=== PATIENT | male | born 1950 | race Caucasian/White ===

== ENCOUNTER → 2017-05-30 09:07 | Outpatient (CLI) | payer MEDICARE | END | disposition home or self-care (01) | LOC: D.CT 09:07 | DX: R41.3 Other amnesia (principal) ==

== ENCOUNTER → 2018-05-07 09:43 | Outpatient (CLI) | payer MEDICARE, OTHER | END | disposition home or self-care (01) | LOC: D.CT 05-01 11:00 | DX: G40.209 Localization-related (focal) (partial) symptomatic epilepsy and epileptic syndromes with complex partial seizures, not intractable, without status epilepticus (principal) ==

== ENCOUNTER 2018-12-24 15:32 | Inpatient (IN) | payer MEDICARE, OTHER ==
[~2018-12-24] VITALS: Ht 175.3 cm; Wt 104.3 kg
[2018-12-24] MEDS ORDERED: BETAPACE 80 MG80 MG PO (15:41)
[2018-12-24] MEDS ORDERED: PRISTIQ100 MG PO (15:41)
[2018-12-24] MEDS ORDERED: CORTISONE ACETA25 MG PO (15:42)
[2018-12-24] MEDS ORDERED: LEVOXYL100 MCG PO (15:42)
[2018-12-24] MEDS ORDERED: HCTZ25 MG PO (15:42)
[2018-12-24 16:11] VITALS: BP 135/79
[2018-12-24 16:40] LABS: ALBUMIN 4.1 g/dL (3.4-5.0); BILIRUBIN - TOTAL 0.35 mg/dL (0.2-1.3); CALCIUM 8.6 mg/dL (8.5-10.1); CARBON DIOXIDE 29.1 mmol/L (21.0-32.0); CREATININE - SERUM 1.3 mg/dL (0.6-1.3); POTASSIUM - SERUM 3.5 mmol/L (3.5-5.1); PROTEIN - SERUM 7.7 g/dL (6.4-8.2)
[2018-12-24 16:41] LABS: ANION GAP 10.4 mmol/L (8-16)
[2018-12-24 16:47] LABS: BASOPHILS 0.4 % (0-2); EOSINOPHILS 3.6 % (0-7); HEMATOCRIT 42.9 % (42.0-54.0); HEMOGLOBIN 15.9 g/dL (13.5-17.5); IMMATURE GRANULOCYTES 0.7 % (0-5); LYMPHOCYTES 10.8 % (15-50); MCH 34.8 pg (26.0-34.0); MCHC 37.1 g/dL (31.0-37.0); MCV 93.9 fL (80.0-100.0); MONOCYTES 7.4 % (2-11); NEUTROPHILS 77.1 % (40-80); PLATELET COUNT 215 10x3/uL (130-400); RBC 4.57 10x6/uL (4.20-6.10); RDW 14.6 % (11.5-14.5); WBC 16.7 10x3/uL (4.8-10.8)
--- NOTE | 2018-12-24 16:55 | NUR ---
URINE TO LAB
[2018-12-24 17:22] LABS: APPEARANCE CLEAR (CLEAR); BILIRUBIN NEGATIVE (NEGATIVE); COLOR YELLOW (YELLOW); GLUCOSE 50 mg/dL (NEGATIVE); KETONE NEGATIVE (NEGATIVE); NITRITE NEGATIVE (NEGATIVE); PROTEIN NEGATIVE (NEGATIVE); UROBILINOGEN NORMAL (NORMAL)
--- NOTE | 2018-12-24 21:05 | NUR ---
PT ARRIVED TO M3 WITH HOSPITAL STAFF AND FAMILY MEMBER, PT ALLERTED AND ORIENTED X 3.
--- NOTE | 2018-12-24 21:15 | NUR ---
PT ARRIVED TO FLOOR AOX4, AMBULATED TO BED WITHOUT DIFFICULTY. ASSESSMENT COMPLETED. PLACED SCDS ON PT AND PROVIDED EDUCATION, VERBALIZED UNDERSTANDING. PLACED PUG MILL OPERATOR HELPER ON PT, PACEMAKER TO LEFT CHEST. AT BEDSIDE. QHS CPAP AT BEDSIDE. DENIES NEEDS. CL IN REACH, WILL CTM
--- NOTE | 2018-12-24 21:26 | NUR ---
PT REQUESTED AMBIAN FOR SLEEP TONIGHT. PAGED FLORENCE MORALES FOR AMBIAN AND FLORENCE ORDERED AMBIAN 5MG QHS FOR PT.
[2018-12-24 21:31] VITALS: BP 163/87; BMI 34.0
[2018-12-24 23:34] VITALS: BP 158/86
--- NOTE | 2018-12-25 01:30 | NUR ---
PT CALLED TO GET UP TO BATHROOM. REMOVED SCDS SO PT COULD GET UP. PT AMBULATED TO BATHROOM WITHOUT DIFFICULTY AND VOIDED. PLACED SCDS BACK ON PT ONCE IN BED. DENIES NEEDS AT THIS TIME. CPAP ON. CL IN REACH, WILL CTM
[2018-12-25 04:45] VITALS: BP 137/81
[2018-12-25 06:17] LABS: ANION GAP 14.8 mmol/L (8-16); CALCIUM 8.2 mg/dL (8.5-10.1); CARBON DIOXIDE 24.6 mmol/L (21.0-32.0); CREATININE - SERUM 1.1 mg/dL (0.6-1.3); MAGNESIUM - SERUM 1.5 mg/dL (1.8-2.4); PHOSPHOROUS 2.2 mg/dL (2.5-4.9); POTASSIUM - SERUM 3.4 mmol/L (3.5-5.1); THYROID STIMULATING HORMONE 0.56 uIU/mL (0.36-3.74)
--- NOTE | 2018-12-25 07:10 | NUR ---
REPORT RECEIVED FROM PARCEL POST ORDER CLERK AND PATIENT CARE ASSUMED. PATIENT LAYING IN BED WITH EYES CLOSED AND BREATHING EVENLY. PATIENT IS STABLE AND VSS. WILL CONTINUE WITH PLAN OF CARE. SR UP X 2 BED IN LOW POSITION AND CALL LIGHT IN REACH.
[2018-12-25 08:00] VITALS: BP 140/82
--- NOTE | 2018-12-25 08:21 | NUR ---
COMPLETED PATIENT ASSESSMENT. PATIENT ANSWER ORIENTATION QUESTIONS SLOWLY. ORIENTED TO PERSON , PLACE , SITUATION BUT ANSWERED 2015 TO . PATIENT DENIES ANY NEEDS OR PAIN. WILL CONTINUE TO MONITOR. SR UP X 2 BED IN LOW POSITION AND CALL LIGHT IN REACH.
[2018-12-25 08:30] LABS: BASOPHILS 0.5 % (0-2); EOSINOPHILS 3.5 % (0-7); HEMATOCRIT 39.2 % (42.0-54.0); HEMOGLOBIN 14.4 g/dL (13.5-17.5); IMMATURE GRANULOCYTES 0.6 % (0-5); MCHC 36.7 g/dL (31.0-37.0); MCV 92.5 fL (80.0-100.0); MEAN PLATELET VOLUME 10.8 fL (7.4-10.4); NEUTROPHILS 76.4 % (40-80); PLATELET COUNT 207 10x3/uL (130-400); RBC 4.24 10x6/uL (4.20-6.10); RDW 14.5 % (11.5-14.5); WBC 17.6 10x3/uL (4.8-10.8)
--- NOTE | 2018-12-25 10:20 | NUR ---
PATIENT TO BR THEN IN BS CHAIR. PATIENT IS STABLE AND VSS. PATIENT DENIES ANY NEEDS OR PAIN. CALL LIGHT IN REACH. WILL CONTINUE TO MONITOR.
[2018-12-25 10:36] VITALS: BMI 33.9
[2018-12-25 11:30] VITALS: BP 132/72
--- NOTE | 2018-12-25 13:00 | NUR ---
PATIENT BACK TO BED. SCD'S APPLIED. PATIENT IS STABLE AND UNCHANGED. WILL CONTINUE TO MONITOR. SR UP X 2 BED IN LOW POSITION AND CALL LIGHT IN REACH.
[2018-12-25 14:40] LABS: CALCIUM 7.4 mg/dL (8.5-10.1); CARBON DIOXIDE 25.6 mmol/L (21.0-32.0); CREATININE - SERUM 1.3 mg/dL (0.6-1.3)
[2018-12-25 14:41] LABS: ANION GAP 12.3 mmol/L (8-16)
[2018-12-25 14:44] LABS: POTASSIUM - SERUM 2.9 mmol/L (3.5-5.1)
[2018-12-25 16:00] VITALS: BP 139/71
--- NOTE | 2018-12-25 16:30 | NUR ---
PATIENT AMBULATING IN HW WITH AT SIDE. PATIENT HAS STEADY GAIT AND TOLERATING WELL.
--- NOTE | 2018-12-25 17:03 | NUR ---
PATIENT SITTING IN CHAIR EATING SUPPER. PATIENT DENIES ANY NEEDS OR PAIN. AT .
--- NOTE | 2018-12-25 17:12 | MORECARE ---
CASE MANAGEMENT DISCHARGE SUMMARY PATIENT: MISTY DENG UNIT: [id number] ADM DATE: 12/24/18 AGE: 68 : 49 SEX: M ROOM/BED: D.1207 AUTHOR: SHERIN PARSONS PHYSICIAN: REFERRING PHYSICIAN: MISTY SHER MD DATE OF SERVICE: 12/25/18 Discharge Plan Patient Name: MISTY DENG Facility: [facility]:[place] : 1950 Planned Disposition: Anticipated Discharge Date: Discharge Date: Expected LOS: Initial Reviewer: [email or web address] Initial Review Date: 12/25/2018 Generated: 12/25/18 6:12 pm Comments DCP- Discharge Planning Updated by [email or web address]: Maggie Shirley on 12/25/18 4:[address] Patient Name: MISTY DENG Admission Status: ER Accout number: [id number] Admission Date: 12-24-2018 : 1950 Admission Diagnosis: Attending: MISTY SHER Current LOS: 1 Anticipated DC Date: Planned Disposition: Primary Insurance: MEDICARE A & B Discharge Planning Comments: CM MET WITH PATIENT AND HIS TO DISCUSS DC PLANNING/NEEDS. STATES PLANS TO DC TO HOME WITH AND DENIES NEEDS. CM TO FOLLOW AND ASSIST. Truer Pinion And Wheel: Maggie Shirley DCPIA - Discharge Planning Initial Assessment Updated by [email or web address]: Maggie Shilrey on 12/25/18 5:06 pm * PCP YUNIEL * Pharmacy [facility] * Preadmission Environment Home with Family * ADLs Independent * Equipment CPAP * List name and contact numbers for known caregivers / representatives who currently or will assist patient after discharge: PRATH, * Community resources currently utilized None * Additional services required to return to the preadmission environment? No * Can the patient safely return to the preadmission environment? Yes * Has this patient been hospitalized within the prior 30 days at any hospital? Yes Patient Name: MISTY DENG Page [id number] at 3272 All edits/amendments must be made on the electronic document DICTATION DATE: 12/25/181711 PALLIATIVE CARE NURSE: DONNELL 12/25/181711 RPT#: [id number] [place] DATE: STATUS: ADM IN [facility] [address] [place] [address] END OF REPORT
[2018-12-25] MEDS ORDERED: NORVASC5 MG PO (18:47)
[2018-12-25] MEDS ORDERED: ASPIRIN325 MG PO (18:47)
[2018-12-25] MEDS ORDERED: KLONOPIN0.5 MG PO (18:48)
[2018-12-25] MEDS ORDERED: PLAVIX75 MG PO (18:48)
[2018-12-25] MEDS ORDERED: VIBRAMYCIN 100100 MG PO (19:08)
[2018-12-25] MEDS ORDERED: CORTEF10 MG PO (19:09)
[2018-12-25] MEDS ORDERED: MUCINEX DM ER1 EAC1 PO (19:09)
[2018-12-25] MEDS ORDERED: REXULTI1 MG PO (19:10)
[2018-12-25] MEDS ORDERED: PROTONIX40 MG PO (19:10)
[2018-12-25] MEDS ORDERED: CRESTOR20 MG PO (19:11)
[2018-12-25] MEDS ORDERED: THERMOTABS 1 GM1 GM PO (19:12)
[2018-12-25] MEDS ORDERED: SYMBICORT 16010.2 GM INH (19:12)
--- NOTE | 2018-12-25 19:20 | NUR ---
EVENING ROUNDS MADE, WILL CONTINUE POC. PATIENT IS A/O, WITH CONFUSION AT TIMES, UP AD BOZENA. NO S/SX OF DISTRESS NOTED. RR EVEN AND UNLABORED ON ROOM AIR, PATIENT WEARS BIPAP AT NIGHT. PATIENT ACCIDENTIAL PULLED OUT IV TO RT UPPER ARM, CATH TIP INTACT. WILL RESITE IV. PATIENT DENIES FURTHER NEEDS AT THIS TIME. IS AT BEDSIDE. CL IN REACH, BED LOCKED AND LOWERED. WILL CTM.
[2018-12-25 20:00] VITALS: BP 143/80
--- NOTE | 2018-12-25 20:50 | NUR ---
RESITED IV TO RT UPPER ARM. NS INFUSING @75ML/HR, JUST HUNG ROCEPHIN PER ORDERS. IV IS PATENT, DRSG IS C/D/I. PATIENT TOLERATED WELL. PATIENT DENIES FURTHER NEEDS AT THIS TIME. WILL CTM.
--- NOTE | 2018-12-25 22:51 | NUR ---
PATIENT C/O BLOATING/GAS. OFFERED MIRALAX WITH PRUNE JUICE. PATIENT REPORT SOME RELIEF ALREADY. WILL CTM.
[2018-12-26 00:28] VITALS: BP 152/95
--- NOTE | 2018-12-26 03:35 | NUR ---
PATIENT WOKE UP TO USE THE BATHROOM AND WAS DISORIENTED. HE PULLED OUT IV, CATH TIP INTACT, AND PULLED OFF TELE. CURRENTLY REORIENTED TO TIME AND SITUATION. TELE REATTACHED. NOT ABLE TO RESITE IV DUE TO VEIN FINDER BEING USED ON ANOTHER FLOOR. WILL BE NOTIFIED WHEN IT'S RETURNED TO LAB. CL IN REACH, BED LOCKED AND LOWERED. WILL CTM.
[2018-12-26 04:12] VITALS: BP 138/76
--- NOTE | 2018-12-26 05:33 | NUR ---
I have reviewed this patient and I concur with the Shift Assessment completed by the Licensed Practical Nurse today this shift.
[2018-12-26 06:45] LABS: BASOPHILS 0.4 % (0-2); EOSINOPHILS 3.5 % (0-7); HEMOGLOBIN 14.5 g/dL (13.5-17.5); IMMATURE GRANULOCYTES 0.7 % (0-5); LYMPHOCYTES 18.1 % (15-50); MCH 33.8 pg (26.0-34.0); MCHC 37.2 g/dL (31.0-37.0); MCV 90.9 fL (80.0-100.0); MEAN PLATELET VOLUME 10.8 fL (7.4-10.4); MONOCYTES 8.2 % (2-11); NEUTROPHILS 69.1 % (40-80); PLATELET COUNT 210 10x3/uL (130-400); RBC 4.29 10x6/uL (4.20-6.10); RDW 14.3 % (11.5-14.5); WBC 17.8 10x3/uL (4.8-10.8)
--- NOTE | 2018-12-26 06:50 | NUR ---
REPORT RECEIVED AND PATIENT CARE ASSUMED. PATIENT LAYING IN BED AWAKE, ALERT AND DISORIENTED TO TIME. PATIENT IS STABLE AND VSS. PATIENT DENIES ANY NEEDS OR PAIN. WILL CONTINUE WITH PLAN OF CARE. SR UP X 2 BED IN LOW POSITION AND CALL LIGHT IN REACH.
[2018-12-26 07:05] LABS: CARBON DIOXIDE 26.9 mmol/L (21.0-32.0); CREATININE - SERUM 1.1 mg/dL (0.6-1.3); MAGNESIUM - SERUM 1.7 mg/dL (1.8-2.4); PHOSPHOROUS 2.3 mg/dL (2.5-4.9)
[2018-12-26 07:12] LABS: ANION GAP 13.6 mmol/L (8-16); POTASSIUM - SERUM 3.5 mmol/L (3.5-5.1)
--- NOTE | 2018-12-26 09:30 | NUR ---
PATIENT UP TO BATHROOM FOR SHOWER AND COMPLETE LINEN CHANGE. PATIENT IS UNCHANGED AND STABLE. WILL CONTINUE WITH PLAN OF CARE. SR UP X 2 BED IN LOW POSITION AND CALL LIGHT IN REACH.
--- NOTE | 2018-12-26 11:30 | NUR ---
PATIENT IS UNCHANGED. PATIENT PULLED IV OUT. MARIO PINTOSUPERVISOR LUMP ROOM ACCESS IN ROOM. NEW PIV ACCESS TO RT FOREARM. PATIENT DENIES ANY NEEDS OR PAIN. SR UP X 2 BED IN LOW POSITION AND CALL LIGHT IN ROBERT.
[2018-12-26 14:29] LABS: CARBON DIOXIDE 27.3 mmol/L (21.0-32.0); GLUCOSE 135 mg/dL (74-106); MAGNESIUM - SERUM 1.8 mg/dL (1.8-2.4); POTASSIUM - SERUM 3.6 mmol/L (3.5-5.1); UREA NITROGEN 8 mg/dL (7-18); eGFR NON AFRICAN AMERICAN 79 mL/min (90-120)
[2018-12-26 14:30] LABS: CALC OSMOLALITY 236 mosm/kg (275-300)
[2018-12-26 14:31] LABS: CHLORIDE - SERUM 80 mmol/L (98-107); SODIUM 117 mmol/L (136-145)
--- NOTE | 2018-12-26 15:45 | NUR ---
DR ORELLANA IN ROOM. NEW ORDERS RECEIVED.
--- NOTE | 2018-12-26 16:40 | NUR ---
BLADDER SCAN COMPLETED SHOWING 94 ML OF URINE. AGAIN EXPLAINED THAT URINE SPECIMEN NEEDED AND URINAL PROVIDED. PATIENT AND VERBALIZED UNDERSTANDING.
--- NOTE | 2018-12-26 18:23 | NUR ---
PATIENT SITTING UP IN BED WATCHING TV WITH AT BS. PATIENT IS STABLE AND VSS. WILL CONTINUE TO MONITOR. SR UP X 2 BED IN LOW POSITION AND CALL LIGHT IN REACH.
[2018-12-26 19:40] LABS: CALCIUM 7.7 mg/dL (8.5-10.1); CARBON DIOXIDE 22.7 mmol/L (21.0-32.0); CREATININE - SERUM 0.8 mg/dL (0.6-1.3); GLUCOSE 101 mg/dL (74-106); UREA NITROGEN 9 mg/dL (7-18); eGFR NON AFRICAN AMERICAN > 90 mL/min (90-120)
[2018-12-26 19:42] LABS: CALC OSMOLALITY 231 mosm/kg (275-300); POTASSIUM - SERUM 4.3 mmol/L (3.5-5.1)
[2018-12-26 19:44] LABS: CHLORIDE - SERUM 80 mmol/L (98-107); SODIUM 115 mmol/L (136-145)
--- NOTE | 2018-12-26 19:45 | NUR ---
RECEIVED CRITICAL RESULTS FROM LAB Na 115, Cl 80
--- NOTE | 2018-12-26 19:46 | NUR ---
EVENING ROUNDS MADE, WILL CONTINUE POC. PATIENT IS ALERT AND ORIENTED AT THE MOMENT, CONFUSED AT TIMES. IS AT BEDSIDE. PATIENT HAS IV TO RT FA WITH FLUIDS INFUSING @ 30ML/HR. NO S/S OF DISTRESS NOTED. RR EVEN AND UNLABORED ON ROOM AIR. PATIENT DENIES FURHTER NEEDS AT THIS TIME. CL IN REACH, BED LOCKED AND LOWERED. WILL CTM.
[2018-12-26 20:00] VITALS: BP 159/57
--- NOTE | 2018-12-27 00:31 | NUR ---
I have reviewed this patient and I concur with the Shift Assessment completed by the Licensed Practical Nurse today this shift.
[2018-12-27 00:46] VITALS: BP 159/89
--- NOTE | 2018-12-27 00:51 | NUR ---
PATIENT C/O OF TIGHTNESS AND PAIN IN HIS ABDOMEN AND NOT BEING ABLE TO FULLY EMPTY HIS BLADDER. BLADDER SCAN SHOWED 10ML. CALLED FLORENCE, ORDERS PUT IN FOR PAIN MEDS. PATIENT HAS BEEN ABLE TO PASS ALOT OF GAS AND URINATED MORE. PATIENT REPORTS MUCH RELIEF AND DENIES FURTHER NEEDS AT THIS TIME. CL IN REACH, BED LOCKED AND LOWERED. WILL CTM.
[2018-12-27 01:16] LABS: CREATININE - URINE 37.3 mg/dL (30-125)
[2018-12-27 06:57] LABS: BASOPHILS 0.3 % (0-2); EOSINOPHILS 2.5 % (0-7); HEMATOCRIT 38.2 % (42.0-54.0); HEMOGLOBIN 14.2 g/dL (13.5-17.5); IMMATURE GRANULOCYTES 0.6 % (0-5); LYMPHOCYTES 14.9 % (15-50); MCH 33.7 pg (26.0-34.0); MCHC 37.2 g/dL (31.0-37.0); MCV 90.7 fL (80.0-100.0); MEAN PLATELET VOLUME 10.9 fL (7.4-10.4); MONOCYTES 9.7 % (2-11); PLATELET COUNT 205 10x3/uL (130-400); RBC 4.21 10x6/uL (4.20-6.10); RDW 14.3 % (11.5-14.5); WBC 18.6 10x3/uL (4.8-10.8)
[2018-12-27 07:17] LABS: CALCIUM 7.5 mg/dL (8.5-10.1); CARBON DIOXIDE 25.1 mmol/L (21.0-32.0); CHLORIDE - SERUM 88 mmol/L (98-107); GLUCOSE 106 mg/dL (74-106); MAGNESIUM - SERUM 1.6 mg/dL (1.8-2.4); SODIUM 123 mmol/L (136-145); eGFR NON AFRICAN AMERICAN 79 mL/min (90-120)
[2018-12-27 07:22] LABS: CALC OSMOLALITY 245 mosm/kg (275-300); PHOSPHOROUS 1.4 mg/dL (2.5-4.9); POTASSIUM - SERUM 3.5 mmol/L (3.5-5.1); UREA NITROGEN 6 mg/dL (7-18)
--- NOTE | 2018-12-27 07:38 | NUR ---
PT SITTING UP RIGHT IN BED EATING BREAKFAST. FAMILY AT BEDSIDE. PT HAS A 22 GAUGE IV TO THE RIGHT FOREARM, SALINE LOCKED. PT WEARS A BIPAP AT NIGHT. PT IS ALERT WITH OCCASSIONAL CONFUSION. LEFT CHEST PACEMAKER, PLACED IN THE 80'.S DENIES ANY NEEDS. WILL CTM.
--- NOTE | 2018-12-27 08:20 | NUR ---
ADMINISTERED MEDICATION AT THIS TIME, NO TROUBLE SWALLOWING. PT DENIES ANY NEEDS AT THIS TIME. FAMILY AT BEDSIDE. WILL CTM.
--- NOTE | 2018-12-27 10:45 | NUR ---
RESTING COMFORTABLY IN BED WITH FAMILY AT BEDSIDE. DENIES ANY NEEDS. WILL CTM.
[2018-12-27 10:57] VITALS: Ht 175.3 cm; Wt 104.3 kg
--- NOTE | 2018-12-27 11:00 | NUR ---
DC PT RIGHT FOREARM IV DUE TO LEAKING. TOLERATED WELL. CATHETER TIP INTACT. CONTACT SORAIDA JOHNS TO RESTART IV.
--- NOTE | 2018-12-27 13:00 | NUR ---
MED SURG NURSE MARIO MOSQUERA ATTEMPTED TO START PERIPHERAL IV ON PATIENT, ATTEMPT FAILED. PENOLOGY PROFESSOR CONTACTED IN ATTEMPT TO REACH ANESTHESIA TO GET IV ACCESS ON PATIENT. AWAITING CALL BACK. IV ACCESS IS URGENT.
--- NOTE | 2018-12-27 13:24 | NUR ---
PT IS NOW VERY CONFUSED, ROAMING AROUND. CONVINCED PT TO GET BACK IN BED. LEFT RESTING COMFORTABLY WITH 2 SIDE RAILS UP, BED IN LOWEST POSITION AND CALL LIGHT WIHIN REACH. LEFT TEMPORARILY. WILL CTM CLOSELY.
--- NOTE | 2018-12-27 14:14 | NUR ---
HUNG IV SODIUM PHOSPHATE, GAVE PO MAGNESIUM 400 MG AND SODIUM CHLORIDE TAB 1 GRAM. NO TROUBLE SWALLOWING. ANESTHESIA ABLE TO START 24 GAUGE IV TO RIGHT THUMB. WILL CTM.
--- NOTE | 2018-12-27 15:39 | NUR ---
I have reviewed this patient and I concur with the Shift Assessment completed by the Licensed Practical Nurse today this shift.
[2018-12-27 16:26] VITALS: BP 153/74
--- NOTE | 2018-12-27 16:29 | NUR ---
PT RESTING COMFORTABLY IN BEDSIDE CHAIR, AT BEDSIDE. ASSESSED VITALS, ALL ARE STABLE AT THIS TIME. DENIES ANY NEEDS AT THIS TIME. WILL CTM.
--- NOTE | 2018-12-27 17:40 | NUR ---
PT RESTING COMFORTABLY IN BEDSIDE CHAIR WITH AT BEDSIDE. DENIES ANY NEEDS AT THIS TIME. WILL CTM.
--- NOTE | 2018-12-27 18:22 | NUR ---
ADMINISTERED FINAL DOSE OF MAGNESIUM 400 MG. HUNG 3% SODIUM CHLORIDE. NO COMPLAINTS. PT RESTING COMFORTABLY IN BED, AT BEDSIDE. DENIES ANY NEEDS. WILL CTM.
[2018-12-27 18:57] LABS: CALCIUM 7.5 mg/dL (8.5-10.1); CARBON DIOXIDE 28.8 mmol/L (21.0-32.0); GLUCOSE 100 mg/dL (74-106); MAGNESIUM - SERUM 1.8 mg/dL (1.8-2.4); UREA NITROGEN 7 mg/dL (7-18); eGFR NON AFRICAN AMERICAN 79 mL/min (90-120)
[2018-12-27 19:09] LABS: PHOSPHOROUS 2.6 mg/dL (2.5-4.9)
[2018-12-27 19:10] LABS: CALC OSMOLALITY 239 mosm/kg (275-300); CHLORIDE - SERUM 85 mmol/L (98-107); POTASSIUM - SERUM 4.1 mmol/L (3.5-5.1); SODIUM 120 mmol/L (136-145)
--- NOTE | 2018-12-27 19:45 | NUR ---
A&O X 4, AMULATORY IN ROOM, INDEPENDENTLY. AT BEDSIDE. PT HAS GENERALIZED EDEMA, VITAL SIGNS ARE STABLE, BREATHING PATTERN IS SHALLOW AND LUNG SOUNDS ARE DIMINISHED, BUT PRESENT. ENCOURAGED PT TO COUGH AND DEEP BREATHE. ABDOMENAL DISTENTION PRESENT. PT REPORTS REGULAR BMs DAILY/EOD. DENIES N/V PAIN/DISCOMFORT. BRUISING TO BILATERAL UPPER EXTREMITIES. PT CURRENT REFUSES SCDs AND TOBACCO SPRAYER. 24G IV TO RIGHT THUMB FLUSHES WITH EASE. PT AND DO NOT WANT HIM TO TAKE AMBIEN TONIGHT. DENIES FURTHER NEEDS, WILL CONTINUE TO MONITOR.
[2018-12-27 20:00] VITALS: BP 140/70
--- NOTE | 2018-12-27 22:00 | NUR ---
ENTERED ROOM IN RESPONSE TO CALL LIGHT. PT REPORTS RESTLESSNESS. STATES THE MELATONIN IS AN INADEQUATE SLEEP AID AND REQUESTS HIS AMBIEN TO CALM HIM.
[2018-12-28] VITALS: BP 141/78
--- NOTE | 2018-12-28 00:41 | NUR ---
RIGHT SIDE-LYING IN BED, SPONTANEOUS EYE OPENING TO VERBAL STIMULATION. DENIES PAIN/DISCOMFORT. EXPIRATORY WHEEZES AUDIBLE. VITAL SIGNS STABLE. SPO2 92% AND RISING WITH CONTINUED MONITORING WHILE PT IS AWAKE. ENCOURAGED TO UTILIZE HIS HOME CPAP MACHINE. PT APPLIED AND OPERATED CPAP INDEPENDENTLY, DENIES NEEDS AT THIS TIME, WILL CONTINUE TO MONITOR.
--- NOTE | 2018-12-28 03:21 | NUR ---
I have reviewed this patient and I concur with the Shift Assessment completed by the Licensed Practical Nurse today this shift.
[2018-12-28 04:00] VITALS: BP 150/83
[2018-12-28 06:49] LABS: BASOPHILS 0.5 % (0-2); EOSINOPHILS 3.6 % (0-7); HEMOGLOBIN 14.6 g/dL (13.5-17.5); IMMATURE GRANULOCYTES 0.6 % (0-5); LYMPHOCYTES 16.3 % (15-50); MCHC 37.4 g/dL (31.0-37.0); MCV 90.7 fL (80.0-100.0); MEAN PLATELET VOLUME 10.9 fL (7.4-10.4); MONOCYTES 11.9 % (2-11); NEUTROPHILS 67.1 % (40-80); PLATELET COUNT 220 10x3/uL (130-400); RDW 14.4 % (11.5-14.5); WBC 18.2 10x3/uL (4.8-10.8)
[2018-12-28 07:10] LABS: ANION GAP 14.2 mmol/L (8-16); CALCIUM 7.7 mg/dL (8.5-10.1); CARBON DIOXIDE 22.9 mmol/L (21.0-32.0); CREATININE - SERUM 1.1 mg/dL (0.6-1.3); MAGNESIUM - SERUM 1.9 mg/dL (1.8-2.4); PHOSPHOROUS 1.8 mg/dL (2.5-4.9); POTASSIUM - SERUM 4.1 mmol/L (3.5-5.1)
[2018-12-28 08:10] VITALS: BP 141/79
--- NOTE | 2018-12-28 09:23 | NUR ---
PT ALERT X 3, DISORIENTED TO SITUATION. BREATH SOUNDS CLEAR BILAT. GENERALIZED EDEMA ALL OVER. IV TO RIGHT THUMB, PATENT, DRESSING CDI. AT BEDSIDE. BED LOW, CALL LIGHT IN REACH. NO OTHER NEEDS AT THIS TIME.
[2018-12-28 12:14] VITALS: BP 142/76
[2018-12-28 13:17] LABS: CALC OSMOLALITY 247 mosm/kg (275-300); CALCIUM 7.5 mg/dL (8.5-10.1); CARBON DIOXIDE 22.8 mmol/L (21.0-32.0); CHLORIDE - SERUM 90 mmol/L (98-107); CREATININE - SERUM 0.9 mg/dL (0.6-1.3); GLUCOSE 101 mg/dL (74-106); POTASSIUM - SERUM 4.5 mmol/L (3.5-5.1); SODIUM 124 mmol/L (136-145); UREA NITROGEN 6 mg/dL (7-18); eGFR NON AFRICAN AMERICAN 89 mL/min (90-120)
[2018-12-28 13:19] LABS: PHOSPHOROUS 2.9 mg/dL (2.5-4.9)
[2018-12-28 20:03] VITALS: BP 160/79
--- NOTE | 2018-12-28 20:05 | NUR ---
PATIENT RESTING IN BED WITH GUEST AT BEDSIDE AND NO S/S OF DISTRESS. PATIENT DENIES NEEDS AT THIS TIME. BED IN LOWEST POSITION AND CALL LIGHT WITHIN REACH. ENCOURAGED THE PATIENT TO CALL IF HE HAS NEEDS. WILL CONTINUE TO MONITOR.
[2018-12-28 20:09] LABS: ANION GAP 15.6 mmol/L (8-16); CALCIUM 7.5 mg/dL (8.5-10.1); CARBON DIOXIDE 23.5 mmol/L (21.0-32.0); POTASSIUM - SERUM 4.1 mmol/L (3.5-5.1)
[2018-12-28 20:10] LABS: CREATININE - SERUM 1.2 mg/dL (0.6-1.3)
--- NOTE | 2018-12-28 20:27 | NUR ---
PAGED DR. ORELLANA IN REGARDS TO LAB RESULTS
[2018-12-28 23:49] VITALS: BP 152/49
[2018-12-29 04:32] VITALS: BP 147/76
[2018-12-29 07:18] LABS: BASOPHILS 0.6 % (0-2); EOSINOPHILS 2.8 % (0-7); HEMATOCRIT 36.7 % (42.0-54.0); HEMOGLOBIN 13.4 g/dL (13.5-17.5); IMMATURE GRANULOCYTES 0.5 % (0-5); LYMPHOCYTES 21.5 % (15-50); MCH 33.9 pg (26.0-34.0); MCHC 36.5 g/dL (31.0-37.0); MEAN PLATELET VOLUME 10.7 fL (7.4-10.4); MONOCYTES 10.9 % (2-11); NEUTROPHILS 63.7 % (40-80); PLATELET COUNT 222 10x3/uL (130-400); RBC 3.95 10x6/uL (4.20-6.10); RDW 14.8 % (11.5-14.5); WBC 14.3 10x3/uL (4.8-10.8)
[2018-12-29 07:28] LABS: MCV 92.9 fL (80.0-100.0)
[2018-12-29 07:53] LABS: ANION GAP 11.5 mmol/L (8-16); CALCIUM 7.4 mg/dL (8.5-10.1); CARBON DIOXIDE 29.1 mmol/L (21.0-32.0); CREATININE - SERUM 1.1 mg/dL (0.6-1.3); MAGNESIUM - SERUM 1.9 mg/dL (1.8-2.4); POTASSIUM - SERUM 3.6 mmol/L (3.5-5.1)
[2018-12-29 07:56] LABS: PHOSPHOROUS 1.8 mg/dL (2.5-4.9)
[2018-12-29 08:00] VITALS: BP 123/101
--- NOTE | 2018-12-29 09:18 | NUR ---
Nutrition Follow-up: Diet: regular (extra salt) PO intake: 79% Wt trend stable +BM Labs, meds, and skin assessment reviewed RD Following
--- NOTE | 2018-12-29 10:35 | NUR ---
THE PATIENT WAS LYING IN BED AND TALKING WITH HIS WHEN STAFF ENTERED HIS ROOM. BED IS INT HE LOW PSOITION WITH SIDERAILS X2 AND CALL LIGHT WITHIN REACH. THE PATIENT WAS EDUCATED ON THE USE OF A CALL LIGHT AND DEMONSTRATES UNDERSTANDING VIA TEACHBACK METHOD. THE PATIENT APPEARS COMFORTABLE WITH NO QUESTIONS OR CONCERNS AT THIS TIME.
[2018-12-29 11:00] VITALS: BP 141/83
[2018-12-29 16:00] VITALS: BP 126/96
--- NOTE | 2018-12-29 19:48 | NUR ---
PATIENT RESTING IN CHAIR WITH NO S/S OF DISTRESS. PATIENT DENIES NEEDS AT THIS TIME. BED IN LOWEST POSITION AND CALL LIGHT WITHIN REACH. ENCOURAGED THE PATIENT TO CALL IF SHE HAS NEEDS. WILL CONTINUE TO MONITOR.
[2018-12-29 20:18] VITALS: BP 133/82
[2018-12-30] VITALS: BP 165/67
[2018-12-30 04:00] VITALS: BP 163/79
[2018-12-30 07:11] LABS: BASOPHILS 0.9 % (0-2); HEMATOCRIT 35.7 % (42.0-54.0); HEMOGLOBIN 12.7 g/dL (13.5-17.5); IMMATURE GRANULOCYTES 0.4 % (0-5); MCH 33.6 pg (26.0-34.0); MCHC 35.6 g/dL (31.0-37.0); MCV 94.4 fL (80.0-100.0); MEAN PLATELET VOLUME 10.5 fL (7.4-10.4); MONOCYTES 9.5 % (2-11); NEUTROPHILS 64.2 % (40-80); PLATELET COUNT 223 10x3/uL (130-400); RBC 3.78 10x6/uL (4.20-6.10); RDW 15.1 % (11.5-14.5); WBC 12.9 10x3/uL (4.8-10.8)
[2018-12-30 07:29] LABS: ANION GAP 12.6 mmol/L (8-16); CALCIUM 7.8 mg/dL (8.5-10.1); CARBON DIOXIDE 29.1 mmol/L (21.0-32.0); CREATININE - SERUM 1.2 mg/dL (0.6-1.3); MAGNESIUM - SERUM 1.8 mg/dL (1.8-2.4); PHOSPHOROUS 2.1 mg/dL (2.5-4.9); POTASSIUM - SERUM 3.7 mmol/L (3.5-5.1)
--- NOTE | 2018-12-30 08:02 | NUR ---
REPORT RECIEVED. PT STANDING UP AT BEDSIDE. IN ROOM. RR EVEN AND UNLABORED. DISCUSSED WITH PT ABOUT NO FREE WATER AND FLUID RESTRICTIONS AT 1200ML/DAY. PT HAS A R THUMB PIV THAT IS SL. BED LOCKED AND IN LOWEST POSITION. CALL LIGHT WITHIN REACH. WILL CTM
[2018-12-30 09:39] VITALS: BP 152/72
[2018-12-30] MEDS ORDERED: FUROSEMIDE20 MG PO (09:42)
--- NOTE | 2018-12-30 15:26 | NUR ---
NV PAPERWORK GONE OVER AND SIGNED WITH PT. ALL QUESTIONS ANSWERED. PIV REMOVED, CATH TIP FULLY INTACT. PT TAKEN TO FRONT ENTRANCE VIA WHEELCHAIR. PRESENT AT NV.
--- NOTE | 2018-12-30 15:39 | MORECARE ---
CASE MANAGEMENT DISCHARGE SUMMARY PATIENT: MISTY DENG UNIT: [id number] ADM DATE: 12/24/18 AGE: 68 : [birth year] SEX: M ROOM/BED: D.1207 AUTHOR: SHERIN PARSONS PHYSICIAN: REFERRING PHYSICIAN: MISTY SHER MD DATE OF SERVICE: 12/30/18 Discharge Plan Patient Name: MISTY DENG Facility: [facility]:[place] : 1950 Planned Disposition: Home Anticipated Discharge Date: 12/30/18 Discharge Date: 12/30/2018 Expected LOS: 6 Initial Reviewer: [email or web address] Initial Review Date: 12/25/2018 Generated: 12/30/18 4:38 pm Comments DCP- Discharge Planning Updated by [email or web address]: César Bronson on 12/30/18 2:[address] Patient Name: MISTY DENG Encounter No: [id number] : 1950 Primary Insurance: MEDICARE A & B Anticipated DC Date: 12-30-2018 Planned Disposition: Home DCP follow-up note: CM MET WITH PT IN ROOM TO DISCUSS DISCHARGE NEEDS AND PLANNING. CM DISCUSSED AVAILABILITY OF HOME HEALTH, REHAB SERVICES AND MEDICAL EQUIPMENT. PT DENIES DISCHARGE NEEDS. SPOUSE TO TRANSPORT HOME AT DISCHARGE. IMPORTANT MESSAGE FROM MEDICARE PROVIDED AND EXPLAINED. DAIRY SCIENCE TEACHER NURSE NOTIFIED. EMILIANA Myers DCP- Discharge Planning Updated by [id number]: Maggie Shirley on 12/25/18 4:[address] Patient Name: MISTY DENG Admission Status: ER Accout number: [id number] Admission Date: 12-24-2018 : 1950 Admission Diagnosis: Attending: MISTY SHER Current LOS: 1 Anticipated DC Date: Planned Disposition: Primary Insurance: MEDICARE A & B Discharge Planning Comments: CM MET WITH PATIENT AND HIS TO DISCUSS DC PLANNING/NEEDS. STATES PLANS TO DC TO HOME WITH AND DENIES NEEDS. CM TO FOLLOW AND ASSIST. Nut Grinder: Maggie Shirley DCPIA - Discharge Planning Initial Assessment Updated by [email or web address]: Maggie Shirley on 12/25/18 5:06 pm * PCP YUNIEL * Pharmacy [facility] [address] * Preadmission Environment Home with Family * ADLs Independent * Equipment CPAP * List name and contact numbers for known caregivers / representatives who currently or will assist patient after discharge: PARTH, * Community resources currently utilized None * Additional services required to return to the preadmission environment? No * Can the patient safely return to the preadmission environment? Yes * Has this patient been hospitalized within the prior 30 days at any hospital? Yes Coverage Notice Reviewer: [id number] Trip Bronson Notice Issued Date-Time: 12/30/2018 12:05 Notice Type: IM Discharge Notice Notice Delivered To: Patient Relationship to Patient: Electronic Intelligence Officer Name: Delivery Method: HAND - Hand Delivered Berenice Days: Prior Verbal Notification: Recipient Understood Notice: Yes Recipient Signature: Yes Med Rec Note Co-signed by Attending: Coverage Notice Comment: Last DP export: 12/25/18 4:12 pm Patient Name: MISTY DENG Page 24169 at 1539 All edits/amendments must be made on the electronic document DICTATION DATE: 12/30/18 1538 PRESALES CONSULTANT: DONNELL 12/30/18 1538 RPT#: [id number] DC DATE:12/30/18 STATUS: DIS IN [facility] [address] [place] [address] END OF REPORT
== END 2018-12-30 15:28 | disposition home or self-care (01) | DRG 643 ==
LOC: D.ER 15:32 → D.M3 19:19
PROVIDERS: Family Medicine; Internal Medicine Nephrology; ADMIT Family Medicine; ATTEND Family Medicine
DX: E22.2 Syndrome of inappropriate secretion of antidiuretic hormone (principal); G93.41 Metabolic encephalopathy; N17.9 Acute kidney failure, unspecified; E23.0 Hypopituitarism; E86.0 Dehydration; R41.82 Altered mental status, unspecified; E87.8 Other disorders of electrolyte and fluid balance, not elsewhere classified; I10 Essential (primary) hypertension; E03.9 Hypothyroidism, unspecified; E78.5 Hyperlipidemia, unspecified; D64.9 Anemia, unspecified; J44.9 Chronic obstructive pulmonary disease, unspecified

== ENCOUNTER → 2019-05-04 10:39 | Outpatient (CLI) | payer MEDICARE, OTHER ==
[2018-12-27 10:57] VITALS: BMI 33.9
[~2019-05-04 10:39] MED LIST: ASPIRIN325 MG PO; BETAPACE 80 MG80 MG PO; CORTEF10 MG PO; CORTISONE ACETA25 MG PO; CRESTOR20 MG PO; FUROSEMIDE20 MG PO; HCTZ25 MG PO; KLONOPIN0.5 MG PO; LEVOXYL100 MCG PO; MUCINEX DM ER1 EAC1 PO; NORVASC5 MG PO; PLAVIX75 MG PO; PRISTIQ100 MG PO; PROTONIX40 MG PO; REXULTI1 MG PO; SYMBICORT 16010.2 GM INH; THERMOTABS 1 GM1 GM PO; VIBRAMYCIN 100100 MG PO
== END | disposition home or self-care (01) ==
LOC: D.LAB 10:39
PROVIDERS: ATTEND Urology
DX: N40.0 Benign prostatic hyperplasia without lower urinary tract symptoms (principal); R31.9 Hematuria, unspecified

== ENCOUNTER 2019-05-14 10:46 | Day surgery (SDC) | payer MEDICARE, OTHER ==
[2019-05-12 11:15] LABS: HEMOGLOBIN 14.8 g/dL (13.5-17.5); MCH 32.8 pg (26.0-34.0); MCHC 34.4 g/dL (31.0-37.0); MCV 95.3 fL (80.0-100.0); MEAN PLATELET VOLUME 10.5 fL (7.4-10.4); RBC 4.51 10x6/uL (4.20-6.10); RDW 13.2 % (11.5-14.5); WBC 14.4 10x3/uL (4.8-10.8)
[2019-05-12 11:24] LABS: ANION GAP 5.7 mmol/L (8-16); CALCIUM 8.7 mg/dL (8.5-10.1); CARBON DIOXIDE 33.3 mmol/L (21.0-32.0); CREATININE - SERUM 1.3 mg/dL (0.6-1.3)
[~2019-05-14] VITALS: Ht 175.3 cm; Wt 101.6 kg
[~2019-05-14 10:46] MED LIST changes: +AMBIEN10 MG PO; +BENICAR5 MG PO; +PRISTIQ50 MG PO
[2019-05-14 11:07] VITALS: BP 130/80; Ht 175.3 cm; Wt 101.6 kg
--- NOTE | 2019-05-14 15:20 | NUR ---
1213-REC'D FROM SURGERY. AWAKE AND ALERT.VSS. DENIES PAIN. IV PATENT AT KVO.REVIEWED POST OPERATIVE INSTRUCTIONS. VERBALIZED UNDERSTANDING. ASSISTED TO RESTROOM. REPORTS THE FEELING OF NEEDING TO URINATE.
--- NOTE | 2019-05-14 15:22 | NUR ---
1300-UNABLE TO URINATE. DID HAVE BM.
--- NOTE | 2019-05-14 15:23 | NUR ---
1253-REPORTS FROM MARIO JAEGER PT URINATED 1/2 CUP.
--- NOTE | 2019-05-14 15:24 | NUR ---
1408-MARIO PELAYO PERFORMED BLADDER SCAN ON PT. 77CC URINE ESTIMATED DURING BLADDER SCAN.
--- NOTE | 2019-05-14 15:24 | NUR ---
1415- 500CC NS HUNG VIA IV AT KVO.VSS. TOLERATED WATER. FULL LIQUID TRAY AT BEDSIDE.
--- NOTE | 2019-05-14 16:02 | NUR ---
4922-CONTACTED DR PATEL VIA PHONE. UNABLE TO GET URINE RETURN WITH KIGN INSERTION. SMALL AMOUNT OF THICK BLOOD IN TIP OF CATH-ABD DISTENDED.FIRM UPON PALPATION. BLADDER SCAN IS SHOWING 61CC URINE. NOTIFIED OPS LPN RN HOSPICE WITH [facility]. ORDER'S FROM JORGE TO SEND BACK TO OR FOR CATH INSERTION.
--- NOTE | 2019-05-14 16:02 | NUR ---
1500-PT HAS NOT EATEN, DRANK BLACK COFFEE.
--- NOTE | 2019-05-14 16:07 | OP ---
PATIENT NAME: MISTY DENG MEDICAL RECORD: [id number] :[birth year] LOCATION:D.OPS ADMISSION DATE: SURGEON: GORGE PATEL MD DATE OF OPERATION: 05/14/2019 SURGEON: Gorge Patel MD ANESTHESIA: TIVA by Derek Puentes CRNA. DIAGNOSES: Bladder neck stenosis, bladder outlet obstruction. PROCEDURE: UroLift times 4 in box configuration around the bladder neck. FINDINGS: Obstructive bladder neck. Single ureteral orifices bilaterally. No bladder tumors were seen. BLOOD LOSS: None. CLINICAL HISTORY: This is a 69-year-old male who has symptoms of obstructive BPH. He also has issues with hyponatremia for which he is on sodium chloride supplementation. His voiding symptom score include an IPSS of 24 and a quality of life score of 4. His postvoid residual was 0. He has some trace microhematuria on urinalysis. He is allergic to LIPITOR. He comes to have the UroLift procedure done today. He was given Levaquin IV on-call to the OR. DESCRIPTION OF PROCEDURE: The patient was given IV sedation. He was then placed into the lithotomy position. The scope was introduced. The site of obstruction is at the bladder neck. The lateral lobes of the prostate are not obstructive. He has single ureteral orifices bilaterally. No bladder tumors were seen. The bladder is somewhat inflamed. I decided to put 4 units in the box configuration around the bladder neck to open it up. They were all placed 1.5 cm distal to the bladder neck. One unit on each side was placed at the anterolateral sulcus. Then, one unit on each side was placed at the mid urethral level. This opened up the urethra nicely. There was no bleeding at all from implantation of any of these units. The bladder was left partly full for a voiding trial today. He will be seen in followup in 1 month's time. TRANSINT:[id number] Voice Confirmation ID: [id number] DOCUMENT ID: [id number] GORGE PATEL MD at 1607 CC: [id number] DICTATION DATE: 05/14/19 1213 ROUSTABOUT HAND: 05/14/19 1604 [facility] [address] [place] [address]
--- NOTE | 2019-05-14 18:17 | NUR ---
1800 IV REMOVED AND INSTRUCTIONS GIVEN.
--- NOTE | 2019-05-15 09:14 | OP ---
PATIENT NAME: MISTY DENG MEDICAL RECORD: [id number] :[birth year] LOCATION:D.OPS ADMISSION DATE: SURGEON: GORGE PATEL MD DATE OF OPERATION: 05/14/2019 SURGEON: Gorge Patel MD ANESTHESIA: TIVA by Derek Puentes CRNA. DIAGNOSIS: Urinary retention, postprocedure. PROCEDURE: Cystoscopy, bladder clot evacuation, Sparks catheter insertion over a guidewire. FINDINGS: Open prostatic urethra. One tiny blood clot in the bladder. The patient was not in urinary retention. ESTIMATED BLOOD LOSS: None. CLINICAL HISTORY: This is a 69-year-old male, who earlier today had a UroLift procedure done at the bladder neck with placement of 4 units in the box configuration. He was able to void postoperatively. He was still in the holding area and he was saying that it was difficult to void. His nurse scanned the bladder and claimed that the bladder scan showed a volume greater than 1 liter[address] She attempted to place a Sparks catheter and she was unable to get any urine drainage. We were concerned about clots filling up the bladder and causing a clot urinary retention. Therefore, he was brought back to the operating room. DESCRIPTION OF PROCEDURE: The patient was given IV sedation. He was then placed into the lithotomy position and prepped and draped. Since he had Levaquin earlier today, we did not give him any further antibiotics. Going in with the cystoscope, he has an open prostatic urethra. Going into the bladder, no clots were seen. An Ellik evacuator was used and 1 tiny blood clot was removed from the bladder. The bladder actually was empty. There was not a lot of fluid in the bladder at all. A Sensor wire was then placed into the bladder. Over the wire, a 16-Latvian quileute tip Sparks catheter was inserted. Once the catheter was in the bladder. Then, the Sparks balloon was inflated with 10 cc of sterile water. The catheter was put to bag drainage. I will see the patient in followup next week to remove the catheter for a voiding trial. TRANSINT:[id number] Voice Confirmation ID: [id number] DOCUMENT ID: [id number] GORGE PATEL MD at 0914 CC: [id number] DICTATION DATE: 05/14/191726 MACHINE OPERATOR PACKAGING: 05/14/192153 [facility] 05/14/19 [facility] [address] [place] [address]
== END 2019-05-14 18:15 | disposition home or self-care (01) ==
LOC: D.OPS 10:46 → D.PAN 11:35 → D.OPS 11:35 → D.PAN 12:45 → D.OPS 18:15
PROVIDERS: Anesthesiology; ATTEND Urology
DX: R33.9 Retention of urine, unspecified (principal); N32.0 Bladder-neck obstruction; N40.1 Benign prostatic hyperplasia with lower urinary tract symptoms; R31.21 Asymptomatic microscopic hematuria; I48.20 Chronic atrial fibrillation, unspecified; N28.9 Disorder of kidney and ureter, unspecified; Z95.0 Presence of cardiac pacemaker; I10 Essential (primary) hypertension; E78.00 Pure hypercholesterolemia, unspecified; R39.15 Urgency of urination
CPT/HCPCS: 52001; C9740

== ENCOUNTER → 2019-09-16 12:49 | Outpatient (CLI) | payer MEDICARE, OTHER ==
[2019-05-14 11:07] VITALS: BMI 33.1
== END | disposition home or self-care (01) ==
LOC: D.LABREF 12:49
PROVIDERS: ATTEND Internal Medicine Pulmonary Disease
DX: Z11.59 Encounter for screening for other viral diseases (principal)

== ENCOUNTER → 2019-09-17 14:20 | Outpatient (CLI) | payer MEDICARE, OTHER ==
[2019-05-14 11:07] VITALS: BMI 33.1
== END | disposition home or self-care (01) ==
LOC: D.RAD 14:20 → D.RT 15:00
PROVIDERS: ATTEND Internal Medicine Pulmonary Disease
DX: R06.09 Other forms of dyspnea (principal)

== ENCOUNTER 2019-12-09 13:39 | Inpatient (IN) | payer MEDICARE, OTHER ==
[~2019-12-09] VITALS: Ht 175.3 cm; Wt 104.3 kg
[2019-12-09 14:30] VITALS: BP 116/63
[2019-12-09 15:10] LABS: APTT 31.4 SECONDS (22.8-39.4); INR 1.09 (0.85-1.17)
[2019-12-09 15:18] LABS: CALC OSMOLALITY 247 mosm/kg (275-300); CALCIUM 8.2 mg/dL (8.5-10.1); CARBON DIOXIDE 26.1 mmol/L (21.0-32.0); CHLORIDE - SERUM 86 mmol/L (98-107); CREATININE - SERUM 1.8 mg/dL (0.6-1.3); GLUCOSE 156 mg/dL (74-106); POTASSIUM - SERUM 3.4 mmol/L (3.5-5.1); SODIUM 122 mmol/L (136-145); UREA NITROGEN 11 mg/dL (7-18); eGFR NON AFRICAN AMERICAN 40 mL/min (90-120)
[2019-12-09 15:23] LABS: GLUCOSE NEGATIVE (NEGATIVE); KETONE NEGATIVE (NEGATIVE); NITRITE NEGATIVE (NEGATIVE); UROBILINOGEN NORMAL (NORMAL)
[2019-12-09 15:24] LABS: BILIRUBIN NEGATIVE (NEGATIVE)
[2019-12-09 15:30] VITALS: BP 103/70
[2019-12-09 15:35] LABS: BASOPHILS 0.2 % (0-2); EOSINOPHILS 1.7 % (0-7); HEMATOCRIT 44.8 % (42.0-54.0); HEMOGLOBIN 16.2 g/dL (13.5-17.5); IMMATURE GRANULOCYTES 0.4 % (0-5); LYMPHOCYTES 13.5 % (15-50); MCH 33.5 pg (26.0-34.0); MCHC 36.2 g/dL (31.0-37.0); MCV 92.8 fL (80.0-100.0); MEAN PLATELET VOLUME 9.9 fL (7.4-10.4); MONOCYTES 11.8 % (2-11); NEUTROPHILS 72.4 % (40-80); PLATELET COUNT 386 10x3/uL (130-400); RBC 4.83 10x6/uL (4.20-6.10)
[2019-12-09 15:36] LABS: ALBUMIN 3.4 g/dL (3.4-5.0); ALKALINE PHOSPHATASE 48 U/L (30-120); ALT (SGPT) 29 U/L (10-68); BILIRUBIN - TOTAL 1.02 mg/dL (0.2-1.3); CKMB 3.3 U/L (0.0-3.6); CREATINE KINASE 547 UL (21-232); PRO BNP 331 pg/mL (0-125); PROTEIN - SERUM 7.5 g/dL (6.4-8.2)
[2019-12-09 15:48] LABS: TROPONIN-I < 0.017 ng/mL (0.000-0.060)
[2019-12-09 16:30] VITALS: BP 109/79
[2019-12-09 17:51] VITALS: BP 101/65
[2019-12-09 20:54] VITALS: BP 117/71
--- NOTE | 2019-12-09 21:03 | NUR ---
PATIENT ADMITTED. HE IS CONFUSED TO PLACE. HE CAN AMBULATE BY HIMSELF. HE IS ON 3 LITERS NASAL CANNULA. ACCORDING TO HE WAS POSITIVE COVID 11/28/19. WE WILL CONTINUE TO MONITOR HIS RESPIRATORY STATUS.
[2019-12-10] VITALS: BP 109/59
--- NOTE | 2019-12-10 03:32 | NUR ---
ORDERED REMDESIVIR 200 MG IV ONCE. THE NURSING VELVET WEAVER WAS UNABLE TO GET MEDICATION UNTIL PHARMACY OPENS.
[2019-12-10 06:29] LABS: HEMATOCRIT 41.2 % (42.0-54.0); HEMOGLOBIN 14.6 g/dL (13.5-17.5); MCH 32.9 pg (26.0-34.0); MCHC 35.4 g/dL (31.0-37.0); MCV 92.8 fL (80.0-100.0); MEAN PLATELET VOLUME 9.7 fL (7.4-10.4); PLATELET COUNT 461 10x3/uL (130-400); RBC 4.44 10x6/uL (4.20-6.10); RDW 13.3 % (11.5-14.5); WBC 15.8 10x3/uL (4.8-10.8)
[2019-12-10 06:56] LABS: ALBUMIN 3.1 g/dL (3.4-5.0); ANION GAP 16.2 mmol/L (8-16); BILIRUBIN - TOTAL 0.58 mg/dL (0.2-1.3); CALCIUM 7.7 mg/dL (8.5-10.1); CARBON DIOXIDE 21.7 mmol/L (21.0-32.0); CREATININE - SERUM 1.4 mg/dL (0.6-1.3); MAGNESIUM - SERUM 1.9 mg/dL (1.8-2.4); POTASSIUM - SERUM 3.9 mmol/L (3.5-5.1); PROTEIN - SERUM 7.6 g/dL (6.4-8.2)
[2019-12-10 07:30] LABS: PHOSPHOROUS 0.5 mg/dL (2.5-4.9)
--- NOTE | 2019-12-10 11:19 | NUR ---
PT LEFT ROOM WHILE THIS NURSE WAS DEALING WITH ANOTHER PATIENT. SECURITY NOTIFIED AND PT WAS LOCATED DOWNSTAIRS. PACU NURSE AND NURSE AGRICULTURAL CROP FARM MANAGER ESCORTED THE PATIENT BACK TO HIS ROOM AND REORIENTED HIM
[2019-12-10 11:57] VITALS: BP 140/79
[2019-12-10 13:17] LABS: LYMPHOCYTES 8 % (15-50); MONOCYTES 2 % (2-11); NEUTROPHILS 87 % (40-80)
[2019-12-10 13:18] LABS: ANISOCYTOSIS OCC; PLATELET ESTIMATE INCREASED; ROULEAUX OCC
--- NOTE | 2019-12-10 19:30 | NUR ---
PATIENT IS RESTING IN BED. HE IS ALERT, BUT CONFUSED TO SITUATION. HE IS STAYIUNG IN HIS ROOM. HE IS ON A NASAL CANNULA. WE WILL CONTINUE TO MONITOR HIS RESPIRATORY STATUS.
--- NOTE | 2019-12-10 19:30 | NUR ---
PATIENT IS RESTING IN BED. HE IS ALERT, BUT CONFUSED ABOUT SITUATION. HE IS APPRECIATIVE OF HELP. HE IS ON NASAL CANNULA. WE WILL CONTINUE TO MONITOR HIS RESPIRATORY STATUS.
[2019-12-10 20:00] VITALS: BP 128/64
[2019-12-11] VITALS: BP 131/62
--- NOTE | 2019-12-11 08:20 | NUR ---
PT RESTING IN BED, CALL LIGHT WITHIN REACH. PT DOES NOT DEMONSTRATE UNDERSTANDING OF CALL LIGHT. BREAKFAST ON BEDSIDE TABLE. ENCOURAGE PT TO EAT HIS BREAKFAST.
[2019-12-11 09:09] VITALS: BP 165/93
[2019-12-11 10:15] LABS: ANION GAP 11.8 mmol/L (8-16); CALCIUM 8.6 mg/dL (8.5-10.1); CARBON DIOXIDE 26.7 mmol/L (21.0-32.0); MAGNESIUM - SERUM 2.2 mg/dL (1.8-2.4)
[2019-12-11 10:19] LABS: POTASSIUM - SERUM 4.5 mmol/L (3.5-5.1)
[2019-12-11 10:21] LABS: HEMATOCRIT 40.9 % (42.0-54.0); HEMOGLOBIN 14.4 g/dL (13.5-17.5); MCH 33.3 pg (26.0-34.0); MCHC 35.2 g/dL (31.0-37.0); MCV 94.7 fL (80.0-100.0); MEAN PLATELET VOLUME 9.4 fL (7.4-10.4); PLATELET COUNT 540 10x3/uL (130-400); RBC 4.32 10x6/uL (4.20-6.10); RDW 13.7 % (11.5-14.5); WBC 32.7 10x3/uL (4.8-10.8)
[2019-12-11 10:22] LABS: PHOSPHOROUS 1.3 mg/dL (2.5-4.9)
[2019-12-11 12:34] LABS: LYMPHOCYTES 9 % (15-50); MONOCYTES 7 % (2-11); NEUTROPHILS 81 % (40-80); PLATELET ESTIMATE INCREASED
[2019-12-11 13:25] VITALS: BMI 33.9
--- NOTE | 2019-12-11 13:40 | NUR ---
CXRAY IN PT'S ROOM
--- NOTE | 2019-12-11 17:30 | NUR ---
SPOKE NUMEROUS TIMES WITH OF PT, SHE IS CALLING FOR UPDATES ON PT. ASKS IF PT CAN COME HOME BECAUSE HE IS CALLING HER ON HIS CELL PHONE AND SOUNDING CONFUSED. REASSURE THE THAT PT IS FINE, SHE REPORTS THAT HE HAS A HX OF HYPONATREMIA. PT SODIUM IS 134. ASKS IF HE CAN RECEIVE SOMETHING TO CALM HIM DOWN. SEE EMAR. 'S NAME IS PARTH,
[2019-12-11] MEDS ORDERED: DONEPEZIL HCL10 MG PO (23:06)
[2019-12-12 00:04] VITALS: BP 136/82
--- NOTE | 2019-12-12 00:27 | NUR ---
PT ALERT TO SELF ONLY, EAILY REDIRECTED BACK INTO ROOM BUT KEEPS ATTEMPTING TO WALK "AROUND THE CRUISE SHIP" ATTMEPTS TO LEAVE THE ROOM MULTIPLE TIMES PER HOUR. PTS CALLED AND STATED HE DOES NOT TAKE AMBIEN ANYMORE, THAT HE HAS DISCONTINUED TAKING THIS A FEW MONTHS AGO. HELD PM DOSE. NO FURTHER NEEDS EXPRESSED. WILL CPOC.
[2019-12-12 06:07] LABS: BASOPHILS 0 % (0-2); EOSINOPHILS 0 % (0-7); HEMATOCRIT 40.9 % (42.0-54.0); HEMOGLOBIN 14.3 g/dL (13.5-17.5); IMMATURE GRANULOCYTES 0.5 % (0-5); LYMPHOCYTES 4.3 % (15-50); MCH 33.3 pg (26.0-34.0); MCV 95.1 fL (80.0-100.0); MEAN PLATELET VOLUME 9.3 fL (7.4-10.4); MONOCYTES 6.5 % (2-11); NEUTROPHILS 88.7 % (40-80); PLATELET COUNT 536 10x3/uL (130-400); RDW 14.1 % (11.5-14.5); WBC 27.8 10x3/uL (4.8-10.8)
[2019-12-12 06:27] LABS: ANION GAP 19.1 mmol/L (8-16); CARBON DIOXIDE 19.2 mmol/L (21.0-32.0); CREATININE - SERUM 2.3 mg/dL (0.6-1.3); MAGNESIUM - SERUM 2.2 mg/dL (1.8-2.4); PHOSPHOROUS 2.6 mg/dL (2.5-4.9); POTASSIUM - SERUM 4.3 mmol/L (3.5-5.1)
--- NOTE | 2019-12-12 06:27 | NUR ---
PT REFUSING IV, STATING HE IS GOING HOME TODAY. STARTING TO GET AGGITATED AT REDIRECTION. NO FURTHER NEEDS EXPRESSED. WILL CPOC.
--- NOTE | 2019-12-12 08:07 | NUR ---
PTY SITTING UP IN CHAIR, PT IS CONFUSED THIS AM, THINKS HE IS ON A CRUISE BOAT, PT IS PLEASANT, PT DENIES PAIN OR NEEDS AT THIS TIME, WILL MONITOR
[2019-12-12 09:07] VITALS: BP 114/74
[2019-12-12 11:35] VITALS: Ht 175.3 cm; Wt 104.3 kg
--- NOTE | 2019-12-12 13:00 | NUR ---
TALKED WITH ABOUT PT BEING UNCOOPERTIVE AND PULLED IV OUT AND THAT HE WANTS TO GO HOME, EXPLAINED TO HER THAT WE WILL GIVE HIM MED TO HELP CALM HIM DOWN, VERBALIZED UNDERSTANDING
--- NOTE | 2019-12-12 13:15 | NUR ---
TALKED WITH LEONORA ABOUT GOING TO WAIT ON HER TO COME UP TO SIT WITH PT, VERBALIZED UNDERSTANDING
--- NOTE | 2019-12-12 13:37 | NUR ---
GAVE PT STACEY LUIS FOR AGGITATION, PT IS TRYING TO LEAVE AMA, PT IS TO SICK AND COVID POSITIVE, TALKED WITH ABOUT PT, SHE UNDERSTANDS GIVING MEDS AND SHE WILL COME SIT WITH PT IF NEEDED, WILL MONITOR
--- NOTE | 2019-12-12 13:53 | NUR ---
TALKED WITH AGAIN ABOUT , SHE HAS BEEN TALKING WITH HIM ON PHONE, SHE VOICED HE IS VERY UPSET AND WANTS TO GO HOME, PT IS PACING IN ROOM, HE IS VERY PLEASANT BUT CONFUSED ABOUT SITUATION
--- NOTE | 2019-12-12 15:28 | NUR ---
TALKED WITH PARTH () EXPLAINED TO HER THAT PT WAS SLEEPING AND RESTING COMFORTABLY, VERBALIZED IF WE NEED HER TO COME UP AND STAY SHE WOULD, TOLD HER THAT I WOULD CALL IF WE NEED HER
--- NOTE | 2019-12-12 15:57 | NUR ---
PT RESTING IN BED WITH EYE CLOSSED, RESP EVEN AND UNLABORED, PT SHOWS NO S/S OF PAIN OR DISTRESS, WILL MONITOR
[2019-12-12 16:50] VITALS: BP 102/68
[2019-12-12 20:00] VITALS: BP 124/65
--- NOTE | 2019-12-12 20:00 | NUR ---
INITIAL ROUNDS COMPLETED. PT RESTING IN BED WITH NO DISTRESS. ON ISOLATION FOR COVID. IVF INFUSING. CPOC.
[2019-12-13] VITALS: BP 122/68
[2019-12-13 06:44] LABS: HEMATOCRIT 39.4 % (42.0-54.0); HEMOGLOBIN 13.3 g/dL (13.5-17.5); MCH 32.7 pg (26.0-34.0); MCHC 33.8 g/dL (31.0-37.0); MCV 96.8 fL (80.0-100.0); MEAN PLATELET VOLUME 9.5 fL (7.4-10.4); PLATELET COUNT 498 10x3/uL (130-400); RBC 4.07 10x6/uL (4.20-6.10); RDW 14.2 % (11.5-14.5); WBC 23.5 10x3/uL (4.8-10.8)
[2019-12-13 07:19] LABS: ANION GAP 15.3 mmol/L (8-16); C-REACTIVE PROTEIN 2.1 mg/dL (0.0-0.9); CALCIUM 7.5 mg/dL (8.5-10.1); CREATININE - SERUM 1.8 mg/dL (0.6-1.3); MAGNESIUM - SERUM 2.4 mg/dL (1.8-2.4); PHOSPHOROUS 2.9 mg/dL (2.5-4.9); POTASSIUM - SERUM 3.9 mmol/L (3.5-5.1)
[2019-12-13 08:13] LABS: CARBON DIOXIDE 24.6 mmol/L (21.0-32.0)
[2019-12-13 08:27] LABS: LYMPHOCYTES 7 % (15-50); MONOCYTES 2 % (2-11); NEUTROPHILS 91 % (40-80)
[2019-12-13 08:28] LABS: PLATELET ESTIMATE NORMAL
--- NOTE | 2019-12-13 08:38 | NUR ---
GAVE PT SCHEDULED MEDS WITHOUT DIFFICULTY, PT IS STILL PLEASANTLY CONFUSED THIS AM, PT STILL THINKS HE IS ON A SHIP, IV INFUSING WITHOUT DIFFICULTY, SITE CLEAR, PT DENIES PAIN OR NEEDS AT THIS TIME, BED LOW AND LOCKED, CALL LIGHT IN REACH, WILL MONITOR
[2019-12-13 09:31] VITALS: BP 119/78
--- NOTE | 2019-12-13 10:43 | NUR ---
PT RESTING IN BED WATCHING TV, PT DENIES PAIN OR NEEDS AT THIS TIME, IV INFSUIGN WITHOUT DIFFICULTY, SITE CLEAR, SR UP X2, CALL LIGHT INREACH, WILL MONITOR, BED LOW AND LOCKED
[2019-12-13 13:30] VITALS: BP 118/86
--- NOTE | 2019-12-13 14:56 | NUR ---
PT UP WALKING IN ROOM, EXPLAINED TO PT THAT HE NEEDS TO USE URINAL SO I CAN COLLECT A SAMPLE, VERBALIZED UNDERSTANDING, WILL MONITOR
[2019-12-13 16:22] VITALS: BP 130/73
[2019-12-13 18:02] LABS: GLUCOSE NEGATIVE (NEGATIVE); KETONE NEGATIVE (NEGATIVE); NITRITE NEGATIVE (NEGATIVE)
[2019-12-13 18:03] LABS: BILIRUBIN NEGATIVE (NEGATIVE); UROBILINOGEN NORMAL (NORMAL)
[2019-12-14 08:37] VITALS: BP 127/58
--- NOTE | 2019-12-14 08:38 | NUR ---
GAVE PT SCHEDULED MEDS, PT DENIES PAIN OR NEEDS, VITAL SIGNS STABLE, WILL MONITOR
--- NOTE | 2019-12-14 11:14 | NUR ---
PT SITTING IN CHAIR, READY TO GO HOME, STILL WAITING ON DOCTORS TO MAKE ROUNDS, NO OTHER NEEDS VOICED, WILL MONITOR
[2019-12-14 11:51] VITALS: BP 127/70
[2019-12-14 12:35] LABS: ANION GAP 11.3 mmol/L (8-16); CALCIUM 7.8 mg/dL (8.5-10.1); CARBON DIOXIDE 26.8 mmol/L (21.0-32.0); CREATININE - SERUM 1.4 mg/dL (0.6-1.3); MAGNESIUM - SERUM 2.3 mg/dL (1.8-2.4); PHOSPHOROUS 2.4 mg/dL (2.5-4.9); POTASSIUM - SERUM 4.1 mmol/L (3.5-5.1)
[2019-12-14 12:37] LABS: BASOPHILS 0.1 % (0-2); EOSINOPHILS 0 % (0-7); HEMATOCRIT 40.1 % (42.0-54.0); HEMOGLOBIN 13.2 g/dL (13.5-17.5); LYMPHOCYTES 4.5 % (15-50); MCH 32.6 pg (26.0-34.0); MCHC 32.9 g/dL (31.0-37.0); MEAN PLATELET VOLUME 9.6 fL (7.4-10.4); MONOCYTES 10.9 % (2-11); NEUTROPHILS 83.5 % (40-80); PLATELET COUNT 494 10x3/uL (130-400); RBC 4.05 10x6/uL (4.20-6.10); RDW 14.1 % (11.5-14.5)
--- NOTE | 2019-12-14 12:50 | NUR ---
Nutrition Follow-up: Chart reviewed. Patient on RA. Diet: Cardiac PO intake: 75-100% x 3 meals yesterday Last BM: 12/13/19. Wt: 230# (12/11/19) Meds noted: zinc sulfate, vitamin D, vitamin C, rocephin, zithromax, budesonide Labs noted: Na 135(L), BUN 27(H), Cr 1.4(H), GFR 53(L), Glu 120(H), PO4 2.4(L) Recommend continue current diet- elevated Glu likely 2/[address] following.
--- NOTE | 2019-12-14 13:06 | NUR ---
GAVE PT FIRST PACK OF PHOS, PHOS IS 2.4, PT WILL GET THREE PACKS TOTAL
[2019-12-14] MEDS ORDERED: AZITHROMYCIN500 MG PO (13:51)
[2019-12-14] MEDS ORDERED: DECADRON4 MG PO (13:52)
--- NOTE | 2019-12-14 15:34 | MORECARE ---
CASE MANAGEMENT DISCHARGE SUMMARY PATIENT: MISTY DENG UNIT: [id number] ADM DATE: 12/09/19 AGE: 69 : 49 SEX: M ROOM/BED: D.2130 AUTHOR: SHERIN PARSONS PHYSICIAN: REFERRING PHYSICIAN: MAY BERNABE MD DATE OF SERVICE: 12/14/19 Discharge Plan Patient Name: MISTY DENG [facility] : 1950 Planned Disposition: Home or Self Care Anticipated Discharge Date: Discharge Date: Expected LOS: Initial Reviewer: [email or web address] Initial Review Date: 12/09/2019 Generated: 12/14/19 4:34 pm Patient Name: MISTY DENG Page [id number] at 1534 All edits/amendments must be made on the electronic document DICTATION DATE: 12/14/19 153 HOME CARE PROVIDER: DONNELL 12/14/19 1534 RPT#: [id number] DC DATE: STATUS: ADM IN [facility] [address] [place] [address] END OF REPORT
--- NOTE | 2019-12-14 15:44 | MORECARE ---
CASE MANAGEMENT DISCHARGE SUMMARY PATIENT: MISTY DENG UNIT: [id number] ADM DATE: 12/09/19 AGE: 69 : 49 SEX: M ROOM/BED: D.0908 AUTHOR: SHERIN PARSONS PHYSICIAN: REFERRING PHYSICIAN: MAY BERNABE MD DATE OF SERVICE: 12/14/19 Discharge Plan Patient Name: MISTY DENG Facility: [facility]:[place] : 1950 Planned Disposition: Home or Self Care Anticipated Discharge Date: Discharge Date: Expected LOS: Initial Reviewer: [email or web address] Initial Review Date: 12/09/2019 Generated: 12/14/19 4:43 pm Comments DCP- Discharge Planning Updated by [email or web address]: Yelitza Hartmann on 12/14/19 2:[address] Patient Name: MISTY DENG Admission Status: ER Accout number: [id number] Admission Date: 12-09-2019 : 1950 Admission Diagnosis:COVID-19 Attending: MAY EVERETT Current LOS: 5 Anticipated DC Date: Planned Disposition: Home or Self Care Primary Insurance: MEDICARE A & B Discharge Planning Comments: CM met with patient to complete initial dc planning assessment. CM educated patient on the CM role and verbal consent given by patient to complete assessment. CM verified patient's address, phone number, and emergency contact phone numbers. Patient lives at home with his , Milena at [phone]. At discharge patient plans to return home and feels this is a safe discharge. CM discussed availability of home health, rehab services, and medical equipment. Patient denied known discharge needs at this time. Transportation provider at discharge will be his . Cm spoke with Milena via phone call regarding greens picker. Milena will arrive at the ED and call nurses station to transport pt to car. DC IMM explained via phone, pt verbalized understanding. Lissa Rn will provide copy of important message. CM will continue to follow and will assist as needed with dc plans/needs. Zipper Setter: Yeltiza Hartmann DCPIA - Discharge Planning Initial Assessment Updated by [email or web address]: Yelitza Hartmann on 12/14/19 3:35 pm * How many steps to enter\exit or inside your home? 0/0 * PCP rhett * Pharmacy [facility] by jeremy * Preadmission Environment Home with Family * ADLs Independent * Equipment None * List name and contact numbers for known caregivers / representatives who currently or will assist patient after discharge: milena mensah [phone] * Verbal permission to speak to the caregivers and representatives has been obtained from the patient. Yes * Community resources currently utilized None * Additional services required to return to the preadmission environment? No * Can the patient safely return to the preadmission environment? Yes * Has this patient been hospitalized within the prior 30 days at any hospital? No Last DP export: 12/14/19 2:34 p Patient Name: MISTY DENG Page [id number] at 1544 All edits/amendments must be made on the electronic document DICTATION DATE: 12/14/19 1543 IT SYSTEMS ANALYST CONSULTANT: DONNELL 12/14/19 1543 RPT#: [id number] DC DATE: STATUS: ADM IN [facility] [address] [place] [address] END OF REPORT
--- NOTE | 2019-12-14 17:00 | NUR ---
WENT OVER PT DISCHARGE INSTRUCTIONS, EXPLAINED TO PT THAT HE HAD MED TO FOUNDATION RELATIONS MANAGER AT PHARMACY, VERBALIZED UNDERSTANDING, REMOVED IV, CATHLON INTACT, PT TOLERATED WELL, ALL PERSONAL BELONGING RETURNED, SUPPOSED TO CALL WHEN RIDE IS DOWN IN ER
--- NOTE | 2019-12-14 17:20 | NUR ---
PT BEING TAKEN OUT TO ER VIA WHEELCHAIR, MASK IN USE, ALL PERSONAL BELONGINGS WITH PT,
--- NOTE | 2019-12-15 08:46 | MORECARE ---
CASE MANAGEMENT DISCHARGE SUMMARY PATIENT: MISTY DENG UNIT: [id number] ADM DATE: 12/09/19 AGE: 69 : 49 SEX: M ROOM/BED: D.2607 AUTHOR: SHERIN PARSONS PHYSICIAN: REFERRING PHYSICIAN: MAY BERNABE MD DATE OF SERVICE: 12/15/19 Discharge Plan Patient Name: MISTY DENG Facility: [facility]:[place] : 1950 Planned Disposition: Home or Self Care Anticipated Discharge Date: Discharge Date: 12/14/2019 Expected LOS: Initial Reviewer: [email or web address] Initial Review Date: 12/09/2019 Generated: 12/15/19 9:46 am Comments DCP- Discharge Planning Updated by [email or web address]: Yelitza Hartmann on 12/14/19 2:[address] Patient Name: MISTY DENG Admission Status: ER Accout number: [id number] Admission Date: 12-09-2019 : 1950 Admission Diagnosis:COVID-19 Attending: MAY EVERETT Current LOS: 5 Anticipated DC Date: Planned Disposition: Home or Self Care Primary Insurance: MEDICARE A & B Discharge Planning Comments: CM met with patient to complete initial dc planning assessment. CM educated patient on the CM role and verbal consent given by patient to complete assessment. CM verified patient's address, phone number, and emergency contact phone numbers. Patient lives at home with his , Milena at [phone]. At discharge patient plans to return home and feels this is a safe discharge. CM discussed availability of home health, rehab services, and medical equipment. Patient denied known discharge needs at this time. Transportation provider at discharge will be his . Cm spoke with Milena via phone call regarding supervisor opening and picking. Milena will arrive at the ED and call nurses station to transport pt to car. DC IMM explained via phone, pt verbalized understanding. Lissa Rn will provide copy of important message. CM will continue to follow and will assist as needed with dc plans/needs. Harness Fitter: Yelitza Hartmann DCPIA - Discharge Planning Initial Assessment Updated by [email or web address]: Yelitza Hartmann on 12/14/19 3:35 pm * How many steps to enter\exit or inside your home? 0/0 * PCP rhett * Pharmacy [facility] by jeremy * Preadmission Environment Home with Family * ADLs Independent * Equipment None * List name and contact numbers for known caregivers / representatives who currently or will assist patient after discharge: milena mensah [phone] * Verbal permission to speak to the caregivers and representatives has been obtained from the patient. Yes * Community resources currently utilized None * Additional services required to return to the preadmission environment? No * Can the patient safely return to the preadmission environment? Yes * Has this patient been hospitalized within the prior 30 days at any hospital? No Coverage Notice Reviewer: [email or web address] Trip Hartmann Notice Issued Date-Time: 12/14/2019 15:44 Notice Type: IM Discharge Notice Notice Delivered To: Family Member Relationship to Patient: Spouse Process Coach Name: milena Delivery Method: PHONE - Phone Berenice Days: Prior Verbal Notification: Yes Recipient Understood Notice: Yes Recipient Signature: Med Rec Note Co-signed by Attending: Coverage Notice Comment: DC IMM explained via phone. Milena verbalized understanding. Lissa provided copy to patient Last DP export: 12/14/19 2:43 p Patient Name: MISTY DENG Page 68880 at 0846 All edits/amendments must be made on the electronic document DICTATION DATE: 12/15/1946 ADMINISTRATIVE PROCESSOR: DONNELL 12/15/19845 RPT#: [id number] DC DATE:12/14/19 STATUS: DIS IN [facility] [address] [place] [address] END OF REPORT
== END 2019-12-14 17:23 | disposition home or self-care (01) | DRG 177 ==
LOC: D.ER 13:39 → D.M2 15:57
PROVIDERS: Family Medicine; Internal Medicine Pulmonary Disease; ADMIT Family Medicine Adult Medicine; ATTEND Family Medicine Adult Medicine
PROC: XW043E5 Introduction of Remdesivir Anti-infective into Central Vein, Percutaneous Approach, New Technology Group 5 (ICD-10-PCS; principal; 2019-12-06)
DX: U07.1 COVID-19 (principal); J18.9 Pneumonia, unspecified organism; J96.21 Acute and chronic respiratory failure with hypoxia; N17.0 Acute kidney failure with tubular necrosis; E87.1 Hypo-osmolality and hyponatremia; E23.0 Hypopituitarism; E87.2 Acidosis; N39.0 Urinary tract infection, site not specified; E03.9 Hypothyroidism, unspecified; E78.5 Hyperlipidemia, unspecified; J44.9 Chronic obstructive pulmonary disease, unspecified; G47.33 Obstructive sleep apnea (adult) (pediatric); Z95.0 Presence of cardiac pacemaker; N40.0 Benign prostatic hyperplasia without lower urinary tract symptoms; F41.9 Anxiety disorder, unspecified; G47.00 Insomnia, unspecified; R41.0 Disorientation, unspecified

== ENCOUNTER 2020-06-27 11:51 | Day surgery (SDC) | payer MEDICARE, OTHER ==
[~2020-06-27] VITALS: Ht 175.3 cm; Wt 97.7 kg
[~2020-06-27 11:51] MED LIST changes: +AZITHROMYCIN500 MG PO; +DECADRON4 MG PO; +DONEPEZIL HCL10 MG PO
[2020-06-27 12:19] LABS: BASOPHILS 0.5 % (0-2); EOSINOPHILS 3.3 % (0-7); HEMATOCRIT 41.6 % (42.0-54.0); HEMOGLOBIN 14.1 g/dL (13.5-17.5); IMMATURE GRANULOCYTES 0.3 % (0-5); LYMPHOCYTE ABS# 3.14 10x3/uL (1.32-3.57); LYMPHOCYTES 23.3 % (15-50); MCH 32.3 pg (26.0-34.0); MCHC 33.9 g/dL (31.0-37.0); MCV 95.2 fL (80.0-100.0); MEAN PLATELET VOLUME 10.4 fL (7.4-10.4); MONOCYTES 8.4 % (2-11); NEUTROPHIL ABS# 8.63 10x3/uL (1.78-5.38); NEUTROPHILS 64.2 % (40-80); RBC 4.37 10x6/uL (4.20-6.10); RDW 12.7 % (11.5-14.5); WBC 13.5 10x3/uL (4.8-10.8)
[2020-06-27 12:22] LABS: PLATELET COUNT 249 10x3/uL (130-400)
[2020-06-27 12:24] LABS: ANION GAP 9.7 mmol/L (8-16); CALCIUM 8.9 mg/dL (8.5-10.1); CREATININE - SERUM 1.4 mg/dL (0.6-1.3); POTASSIUM - SERUM 3.7 mmol/L (3.5-5.1)
[2020-06-27 12:42] LABS: APTT 29.5 SECONDS (22.8-39.4)
[2020-06-27 12:43] LABS: INR 1.1 (0.85-1.17); PROTIME 13.1 SECONDS (11.6-15.0)
[2020-06-27 12:48] VITALS: Ht 175.3 cm; Wt 97.7 kg
--- NOTE | 2020-06-27 14:07 | NUR ---
DC INSTRUCTIONS GIVEN TO PT. STATES UNDERSTANDING. DC'D IV CATH FULLY INTACT. WILL DC SHORTLY.
--- NOTE | 2020-06-27 14:16 | NUR ---
PT LEFT UNIT VIA WC AT 1416
--- NOTE | 2020-06-29 07:30 | OP ---
PATIENT NAME: MISTY DENG MEDICAL RECORD: [id number] :[birth year] LOCATION:D.OPS ADMISSION DATE: SURGEON: LYLY GLYNN DO DATE OF OPERATION: 06/27/2020 PROCEDURE: Colonoscopy with polypectomy. INDICATION FOR PROCEDURE: Stool DNA based colorectal cancer screening positive. SCOPE: Olympus video pediatric colonoscope. MEDICATIONS: Propofol 230 mg IV per anesthesia. WITHDRAWAL TIME: 20 minutes. ESTIMATED BLOOD LOSS: Minimal. COMPLICATIONS: None. FINDINGS: Informed consent was given. The patient was made comfortable with the above medication. After reaching an adequate level of sedation by slow IV push, the patient was placed on his left side. A digital rectal examination was performed and it was normal. The endoscope was then advanced under direct visualization through the rectum to the cecum and terminal ileum. The endoscope was slowly withdrawn, and the mucosa was carefully examined. The prep quality was good. There were multiple polyps visualized on today's examination. Seven polyps in total were located in the ascending colon. They were all benign appearing and sessile and ranged in size from 3 mm-7 mm. They were all removed using a hot snare. There were a few scattered small diverticula located in the sigmoid colon. Retroflexion was performed in the rectum with visualization of a normal appearing rectal wall. The endoscope was withdrawn from the patient. The patient tolerated the procedure well and there were no complications. IMPRESSION: 1. Seven polyps as described above removed from the ascending colon using a hot snare. 2. Mild diverticulosis without diverticulitis. 3. Otherwise, normal colonoscopy. PLAN AND RECOMMENDATIONS: 1. Discharge home when recovery parameters are met. 2. Follow up biopsy specimen results. 3. High fiber diet. 4. Continue current medications. 5. Recall colonoscopy in 3 years. TRANSINT:[id number] Voice Confirmation ID: [id number] DOCUMENT ID: [id number] OPERATIVE REPORT [id number] MISTY DENG LYLY GLYNN DO at 0730 CC: [id number] DICTATION DATE: 06/27/20 1341 GENERAL TELLER: 06/27/20 1811 [facility] 06/27/20 [place] [address]
== END 2020-06-27 14:16 | disposition home or self-care (01) ==
LOC: D.OPS 11:51
PROVIDERS: Anesthesiology; ATTEND Internal Medicine Gastroenterology
DX: R85.89 Other abnormal findings in specimens from digestive organs and abdominal cavity (principal); K63.5 Polyp of colon; K57.30 Diverticulosis of large intestine without perforation or abscess without bleeding